=== PATIENT | female | born 1970 | race African-American/Black ===

== ENCOUNTER 2017-09-24 03:48 | Emergency (ER) | payer OTHER ==
[2017-09-24] MEDS ORDERED: ASPIRIN 81 MG TABLET, CHEWABLE PO ONE (04:42)
--- NOTE | 2017-09-24 04:46 | ER Document Report ---
ED General - General Chief Complaint: Chest Pain Stated Complaint: CHEST PAIN Time Seen by Provider: 09/24/17 04:33 Notes: Patient is a 46-year-old female that comes emergency department for chief complaint of chest pain, left shoulder pain, and pain to her left arm. She states that whenever she moves her left arm she feels sharp pain in her arm and also in her shoulder towards the back. She states that when she moved she felt a sharp pain in her chest that lasted a couple of seconds, no chest pain since, denies current chest pain. She states that the pain made her feel a little bit nauseated, she denies vomiting, shortness of breath. She denies injury. Past medical history of hypertension, medicated. Denies smoking, only other medical history reported is cardiac ablation, does not need antiarrhythmics since, no blood thinners. Positive family history of [place]. TRAVEL OUTSIDE OF THE [place] IN LAST 30 DAYS: No - Related Data Allergies/Adverse Reactions: No Known Allergies Allergy (Verified 06/20/13 10:18) Past Medical History - General Information source: Patient - Social History Smoking Status: Never Smoker Chew tobacco use (# tins/day): No Drug Abuse: None Lives with: Family Family History: CAD Patient has suicidal ideation: No Patient has homicidal ideation: No - Past Medical History Cardiac Medical History: Reports: Hx Hypertension - contr.w/ meds Denies: Hx Coronary Artery Disease, Hx Heart Attack Pulmonary Medical History: Reports: Hx Asthma - last 2 yr ago,no admits. Denies: Hx Bronchitis, Hx COPD, Hx Pneumonia Neurological Medical History: Denies: Hx Cerebrovascular Accident, Hx Seizures Renal/ Medical History: Denies: Hx Peritoneal Dialysis GI Medical History: Musculoskeletal Medical History: Denies Hx Arthritis Infectious Medical History: Past Surgical History: Denies: Hx Pacemaker - Immunizations Hx Diphtheria, Pertussis, Tetanus Vaccination: - unknown Review of Systems - Review of Systems Constitutional: No symptoms reported EENT: No symptoms reported Cardiovascular: See HPI Respiratory: No symptoms reported Gastrointestinal: No symptoms reported Genitourinary: No symptoms reported Female Genitourinary: No symptoms reported Musculoskeletal: See HPI Skin: No symptoms reported Hematologic/Lymphatic: No symptoms reported Neurological/Psychological: No symptoms reported Physical Exam - Vital signs Vitals: Temp Pulse Resp BP Pulse Ox 98.3 F 81 16 157/102 H 97 09/24/17 03:59 09/24/17 03:59 09/24/17 03:59 09/24/17 03:59 09/24/17 03:59 - Notes Notes: GENERAL: Alert, interacts well. No acute distress. HEAD: Normocephalic, atraumatic. EYES: Pupils equal, round, and reactive to light. Extraocular movements intact. ENT: Oral mucosa moist, tongue midline. NECK: Full range of motion. Supple. Trachea midline. LUNGS: Clear to auscultation bilaterally, no wheezes, rales, or rhonchi. No respiratory distress. HEART: Regular rate and rhythm. No murmur ABDOMEN: Soft, non-tender. Non-distended. Bowel sounds present in all 4 quadrants. EXTREMITIES: Patient holding her left arm close to her body, moves her left arm with a little bit of discomfort, still can perform full range of motion, normal strength, pulse, sensation. Mild tenderness over the posterior left shoulder area. Unremarkable neck exam. Normal upper extremity exam otherwise. BACK: no cervical, thoracic, lumbar midline tenderness. No saddle anesthesia, normal distal neurovascular exam. NEUROLOGICAL: Alert and oriented x3. Normal speech. [cranial nerves II through XII grossly intact]. PSYCH: Normal affect, normal mood. SKIN: Warm, dry, normal turgor. No rashes or lesions noted. Course - Re-evaluation Re-evalutation: Patient with pain on examination in her left posterior shoulder and paracervical area which is mild, pain with movement of the left arm. No current chest pain, chest pain nonspecific with only a few seconds of chest pain with movement which resolved. EKG showing sinus rhythm at a rate of 78, normal QTC and SD intervals, no T- wave inversions or ST segment changes in consecutive leads. Her heart score will be 2 unless troponin is elevated (hypertension, positive family history). 09/24/17 06:30 Initial troponin is negative. CBC, chemistry generally unremarkable. Chest x- ray unremarkable. On reevaluation patient remains unchanged, she has pain with movement of the left arm. Provided with pain medication. Discussed with patient. Will repeat troponin, if this is negative patient will be discharged with cardiology referral and treatment for her neck and arm pain with muscle relaxers and anti-inflammatories. Discussed return precautions. Patient states understanding and agreement. - Vital Signs Vital signs: Temp Pulse Resp BP Pulse Ox 98.3 F 81 15 122/91 H 97 09/24/17 03:59 09/24/17 03:59 09/24/17 06:02 09/24/17 06:02 09/24/17 06:02 - Laboratory Result Diagrams: 09/24/17 05:28 09/24/17 05:28 Laboratory results interpreted by me: 09/24/17 09/24/17 05:28 05:28 RDW 14.8 H Glucose 113 H Calcium 11.0 H Total Protein 9.2 H Discharge - Discharge Clinical Impression: Left arm pain Chest pain Qualifiers: Chest pain type: unspecified Qualified Code(s): R07.9 - Chest pain, unspecified Left shoulder pain Qualifiers: Chronicity: acute Qualified Code(s): M25.512 - Pain in left shoulder Disposition: HOME, SELF-CARE Additional Instructions: Your workup today did not show any concerning abnormality. Follow-up with the cardiology referral closely for additional evaluation and management of chest pain. Your chest x-ray does not show any concerning findings. There appears to be a muscular/skeletal component of your pain, I recommend that you take the muscle relaxer and anti-inflammatory as prescribed for the next several days, rest your arm, perform gentle range of motion. Follow-up with primary care. Return for any concerning symptoms including severe pain, difficulty breathing, numbness, fever, or any other concerning or worsening symptoms. Prescriptions: Metaxalone [Skelaxin 800 mg Tablet] 800 mg PO ASDIR PRN #20 tablet PRN Reason: Naproxen [Naprosyn 375 Mg Tablet] 375 mg PO BID #20 tablet Forms: Return to Work Referrals: TOLU SANDOVAL MD [ACTIVE STAFF] - 09/25/17
[2017-09-24 05:47] LABS: ABSOLUTE EOSINOPHILS # (AUTO) 0.3 10^3/uL (0.0-0.6); ABSOLUTE LYMPHOCYTES (AUTO) 1.6 10^3/uL (0.5-4.7); ABSOLUTE MONOCYTES (AUTO) 0.6 10^3/uL (0.1-1.4); BASOPHILS % (AUTO) 0.5 % (0-2); EOSINOPHILS % (AUTO) 4.2 % (0-6); HEMATOCRIT 43.1 % (36.0-47.0); HEMOGLOBIN 14.3 g/dL (12.0-15.5); LYMPHOCYTES % (AUTO) 25.1 % (13-45); MEAN CORPUSCULAR HEMOGLOBIN 28.1 pg (27.0-33.4); MEAN CORPUSCULAR HGB CONC 33.3 g/dL (32.0-36.0); MEAN CORPUSCULAR VOLUME 84 fl (80-97); MONOCYTES % (AUTO) 8.5 % (3-13); PLATELET COUNT 278 10^3/uL (150-450); RED BLOOD COUNT 5.11 10^6/uL (3.72-5.28); RED CELL DISTRIBUTION WIDTH 14.8 % (11.5-14.0); SEGMENTED NEUTROPHILS % (AUTO) 61.7 % (42-78); TOTAL CELLS COUNTED % (AUTO) 100 %; WHITE BLOOD COUNT 6.5 10^3/uL (4.0-10.5)
[2017-09-24 06:06] LABS: ALANINE AMINOTRANSFERASE 20 U/L (9-52); ALBUMIN 4.7 g/dL (3.5-5.0); ALKALINE PHOSPHATASE 83 U/L (38-126); ANION GAP 10 (5-19); ASPARTATE AMINO TRANSFERASE 26 U/L (14-36); BILIRUBIN,DIRECT 0.2 mg/dL (0.0-0.4); BILIRUBIN,TOTAL 1.1 mg/dL (0.2-1.3); BLOOD UREA NITROGEN 9 mg/dL (7-20); CARBON DIOXIDE 30 mmol/L (22-30); CHLORIDE 101 mmol/L (98-107); CREATINE KINASE 109 U/L (30-135); GLUCOSE 113 mg/dL (75-110); POTASSIUM 3.8 mmol/L (3.6-5.0); SODIUM 141.2 mmol/L (137-145); TOTAL PROTEIN 9.2 g/dL (6.3-8.2)
--- NOTE | 2017-09-24 06:12 | RADIOLOGY REPORT (SQ) ---
EXAM DESCRIPTION: XR CHEST 1 VIEW COMPLETED DATE/TME: 09/24/2017 04:43 CLINICAL HISTORY: 46 years, Female, chest pain COMPARISON: 09/07/2011 NUMBER OF VIEWS: One TECHNIQUE: AP view of the chest LIMITATIONS: None. FINDINGS: The lungs are clear. The heart is normal in size. There is no pneumothorax or pleural effusion. There is no acute fracture IMPRESSION: No acute cardiopulmonary abnormality 2010 [employer]- All Rights Reserved
[2017-09-24 06:18] LABS: CREATINE KINASE MB 0.49 ng/mL (<4.55)
[2017-09-24 06:19] LABS: TROPONIN I < 0.012 ng/mL
[2017-09-24] MEDS ORDERED: MORPHINE SULFATE 10 MG/ML INJ IV ONE (06:32)
[2017-09-24 08:52] VITALS: BP 107/78
--- NOTE | 2017-09-24 10:03 | EKG REPORT ---
SEVERITY:- NORMAL ECG - SINUS RHYTHM : Confirmed by: Sloan Peguero 24-Sep-2017 10:03:13
== END 2017-09-24 08:52 | disposition home or self-care (01) ==
LOC: ER 03:48
DX: R07.9 Chest pain, unspecified (principal); M25.512 Pain in left shoulder; M79.602 Pain in left arm; I10 Essential (primary) hypertension
CPT/HCPCS: 93005; 99285; 96374; 36415; 82553; 82550; 84703; 85025; 80053; 84484; 71045; 93010; J2270

== ENCOUNTER 2019-07-20 14:53 | Emergency (ER) | payer OTHER ==
--- NOTE | 2019-07-20 15:21 | ER Document Report ---
ED Medical Screen (RME) - General Chief Complaint: Chest Pain Stated Complaint: CHEST PAIN Time Seen by Provider: 07/20/19 15:00 Primary Care Provider: PILAR NJ FNP-C [Primary Care Provider] - Follow up as needed Mode of Arrival: Ambulatory Information source: Patient Notes: Patient is a 48-year-old female with history of SVT presenting to the emergency department with intermittent heart palpitations and chest pain. Patient reports symptoms have been intermittent over the last few days. She states she saw her primary care provider today who did an EKG which was normal. Heart sounds S1-S2 present, normal rate, normal rhythm no acute distress noted. EKG reviewed, shows a sinus rhythm, no ST segment elevations or depressions. I have greeted and performed a rapid initial assessment of this patient. A comprehensive ED assessment and evaluation of the patient, analysis of test results and completion of the medical decision making process will be conducted by additional ED providers. I have specifically instructed the patient or family members with the patient to immediately return to any nursing staff should anything change in the patient's condition or with their chief complaint. TRAVEL OUTSIDE OF THE [place] IN LAST 30 DAYS: No - Related Data Allergies/Adverse Reactions: No Known Allergies Allergy (Verified 06/20/13 10:18) Home Medications: hctz, advair, proair Past Medical History - Social History Chew tobacco use (# tins/day): No Frequency of alcohol use: Rare Drug Abuse: None - Past Medical History Cardiac Medical History: Reports: Hx Hypertension - contr.w/ meds Denies: Hx Coronary Artery Disease, Hx Heart Attack Pulmonary Medical History: Reports: Hx Asthma - last 2 yr ago,no admits. Denies: Hx Bronchitis, Hx COPD, Hx Pneumonia Neurological Medical History: Denies: Hx Cerebrovascular Accident, Hx Seizures Renal/ Medical History: Denies: Hx Peritoneal Dialysis GI Medical History: Musculoskeltal Medical History: Denies Hx Arthritis Infectious Medical History: Past Surgical History: Denies: Hx Pacemaker - Immunizations Hx Diphtheria, Pertussis, Tetanus Vaccination: - unknown Physical Exam - Vital signs Vitals: Temp Pulse Resp BP Pulse Ox 98.2 F 73 20 148/95 H 98 07/20/19 15:06 07/20/19 15:06 07/20/19 15:06 07/20/19 15:06 07/20/19 15:06 Course - Vital Signs Vital signs: Temp Pulse Resp BP Pulse Ox 98.2 F 73 20 148/95 H 98 07/20/19 15:08 07/20/19 15:06 07/20/19 15:06 07/20/19 15:06 07/20/19 15:06 Doctor's Discharge - Discharge Referrals: PILAR NJ FNP-C [Primary Care Provider] - Follow up as needed
--- NOTE | 2019-07-20 15:45 | RADIOLOGY REPORT (SQ) ---
EXAM DESCRIPTION: CHEST 2 VIEWS IMAGES COMPLETED DATE/TIME: 07/20/2019 3:35 pm REASON FOR STUDY: chest pain/palpitations COMPARISON: PA and lateral views of the chest from 09/07/2011. EXAM PARAMETERS: NUMBER OF VIEWS: Two views. TECHNIQUE: PA and lateral views of the chest were obtained. RADIATION DOSE: NA LIMITATIONS: None. FINDINGS: LUNGS AND PLEURA: No consolidation, pleural effusion or pneumothorax. MEDIASTINUM AND HILAR STRUCTURES: No mediastinal or hilar contour abnormality. HEART AND VASCULAR STRUCTURES: The cardiac silhouette and pulmonary vasculature are within normal kolb its. BONES: No acute findings. HARDWARE: None in the chest. OTHER: No other finding. IMPRESSION: No acute cardiopulmonary process. TECHNICAL DOCUMENTATION: JOB ID: [id number] 2010 [employer]- All Rights Reserved Reading location - IP/workstation name: [email or web address]
[2019-07-20 16:08] LABS: ABSOLUTE EOSINOPHILS # (AUTO) 0.2 10^3/uL (0.0-0.6); ABSOLUTE LYMPHOCYTES (AUTO) 1.8 10^3/uL (0.5-4.7); ABSOLUTE MONOCYTES (AUTO) 0.5 10^3/uL (0.1-1.4); ABSOLUTE NEUT (AUTO) 2.4 10^3/uL (1.7-8.2); BASOPHILS % (AUTO) 0.8 % (0-2); EOSINOPHILS % (AUTO) 5.1 % (0-6); HEMATOCRIT 43.5 % (36.0-47.0); HEMOGLOBIN 14.7 g/dL (12.0-15.5); LYMPHOCYTES % (AUTO) 36.5 % (13-45); MEAN CORPUSCULAR HEMOGLOBIN 28.9 pg (27.0-33.4); MEAN CORPUSCULAR HGB CONC 33.9 g/dL (32.0-36.0); MEAN CORPUSCULAR VOLUME 85 fl (80-97); MONOCYTES % (AUTO) 9.3 % (3-13); PLATELET COUNT 265 10^3/uL (150-450); RED CELL DISTRIBUTION WIDTH 14.3 % (11.5-14.0); SEGMENTED NEUTROPHILS % (AUTO) 48.3 % (42-78); TOTAL CELLS COUNTED % (AUTO) 100 %; WHITE BLOOD COUNT 4.9 10^3/uL (4.0-10.5)
[2019-07-20 16:29] LABS: ALBUMIN 4.6 g/dL (3.5-5.0); ALKALINE PHOSPHATASE 86 U/L (38-126); ANION GAP 8 (5-19); ASPARTATE AMINO TRANSFERASE 22 U/L (14-36); BILIRUBIN,TOTAL 0.7 mg/dL (0.2-1.3); BLOOD UREA NITROGEN 11 mg/dL (7-20); CALCIUM 9.6 mg/dL (8.4-10.2); CARBON DIOXIDE 29 mmol/L (22-30); CHLORIDE 100 mmol/L (98-107); GLUCOSE 100 mg/dL (75-110); POTASSIUM 3.7 mmol/L (3.6-5.0); TOTAL PROTEIN 8.5 g/dL (6.3-8.2)
--- NOTE | 2019-07-20 17:22 | ER Document Report ---
ED General - General Chief Complaint: Chest Pain Stated Complaint: CHEST PAIN Time Seen by Provider: 07/20/19 15:00 Primary Care Provider: PILAR NJ FNP-C [NURSE PRACTITIONER] - Follow up as needed Mode of Arrival: Ambulatory Notes: 48-year-old woman presents to the emergency department with a complaint of chest discomfort which has been ongoing for the past 2 days. She describes a funny tightness in her anterior chest and involving the left shoulder area. Pain began after doing some yard work earlier in the week last week. She has a history of rapid heartbeat and an ablation procedure 1 year ago. States that the symptoms occur while at rest, usually last for a few minutes only, she also notes a burning sensation in her anterior chest at times. She denies nausea, palpitations, diaphoresis or shortness of breath. She has a history of hypertension, does not smoke, notes her cholesterols have been normal in the past and no significant family history for CAD. TRAVEL OUTSIDE OF THE [place] IN LAST 30 DAYS: No - Related Data Allergies/Adverse Reactions: No Known Allergies Allergy (Verified 06/20/13 10:18) Home Medications: hctz, advair, proair Past Medical History - General Information source: Patient - Social History Smoking Status: Never Smoker Chew tobacco use (# tins/day): No Frequency of alcohol use: Rare Drug Abuse: None Family History: CAD Patient has homicidal ideation: No - Past Medical History Cardiac Medical History: Reports: Hx Hypertension - contr.w/ meds Denies: Hx Coronary Artery Disease, Hx Heart Attack Pulmonary Medical History: Reports: Hx Asthma - last 2 yr ago,no admits. Denies: Hx Bronchitis, Hx COPD, Hx Pneumonia Neurological Medical History: Denies: Hx Cerebrovascular Accident, Hx Seizures Renal/ Medical History: Denies: Hx Peritoneal Dialysis GI Medical History: Musculoskeletal Medical History: Denies Hx Arthritis Infectious Medical History: Past Surgical History: Reports: Hx Cardiac Surgery - ablation. Denies: Hx Pacemaker - Immunizations Hx Diphtheria, Pertussis, Tetanus Vaccination: - unknown Review of Systems - Review of Systems Notes: Constitutional: Negative for fever. HENT: Negative for sore throat. Eyes: Negative for visual changes. Cardiovascular: Negative for chest pain. Respiratory: Negative for shortness of breath. Gastrointestinal: Negative for abdominal pain, vomiting or diarrhea. Genitourinary: Negative for dysuria. Musculoskeletal: Negative for back pain. Skin: Negative for rash. Neurological: Negative for headaches, weakness or numbness. 10 point ROS negative except as marked above and in HPI. Physical Exam - Vital signs Vitals: Temp Pulse Resp BP Pulse Ox 98.2 F 73 20 148/95 H 98 07/20/19 15:06 07/20/19 15:06 07/20/19 15:06 07/20/19 15:06 07/20/19 15:06 - Notes Notes: PHYSICAL EXAMINATION: Physical Exam: General: Well-nourished well-developed 48-year-old woman in no acute distress HEENT: NC/AT, pupils equal round and reactive to light, MM moist,nares clear, oropharynx clear, airway patent Neck: supple, no adenopathy, no masses. Good range of motion Lungs: clear, no wheezing, no rales no rhonchi CVS: Regular rate and rhythm no murmur gallop or rub Abdomen: Soft, active, nontender, no masses, no hepatosplenomegaly Ext: No edema, clubbing or cyanosis. Neuro: Alert and responsive, moving all 4 extremities on command, cranial nerves intact, no focal findings Skin: Intact no open lesions, no rash PSYCH: Normal mood, normal affect. Course - Vital Signs Vital signs: Temp Pulse Resp BP Pulse Ox 98.2 F 73 15 117/87 H 99 07/20/19 15:08 07/20/19 15:06 07/20/19 19:00 07/20/19 19:00 07/20/19 19:00 - Laboratory Result Diagrams: 07/20/19 15:45 07/20/19 15:45 Laboratory results interpreted by me: 07/20/19 07/20/19 15:45 15:45 RDW 14.3 H Total Protein 8.5 H 07/20/19 19:16 I have reviewed laboratory data and used this information for the treatment decisions regarding the patient. Discharge - Discharge Clinical Impression: Chest pain Qualifiers: Chest pain type: unspecified Qualified Code(s): R07.9 - Chest pain, unspecified Hypertension Qualifiers: Hypertension type: unspecified Qualified Code(s): I10 - Essential (primary) hypertension Condition: Good Disposition: HOME, SELF-CARE Instructions: Chest Pain of Unclear Cause ([facility]) Additional Instructions: You are seen in the emergency department for nonspecific chest pain and elevated blood pressure. Please follow-up with chief of vital statistics tomorrow, call office for appointment. Please continue blood pressure medication and follow-up the blood pressure with your primary care doctor. HOME CARE INSTRUCTIONS & INFORMATION: Thank you for choosing us for your medical needs. We hope you're satisfied with the care you received. After you leave, you must properly care for your problem and, at the same time, observe its progress. Any condition can change. Some illnesses can change rapidly over hours or days. If your condition worsens, return to the Emergency Department or see your physician promptly. ABOUT YOUR X-RAYS AND EKG'S: If you had an EKG or X-rays taken, they have been read by the Emergency Physician. The X-rays and EKG's will also be read by a Radiologist or Construction Project Coordinator within 24 hours. If discrepancies are noted, you will be notified by telephone. Please be certain the ED has a correct telephone number & address where you can be reached. Also, realize that some fractures or abnormalities do not show up on initial X-rays. If your symptoms continue, see your physician. ABOUT YOUR LABORATORY TEST: If you had laboratory tests, the results have been reviewed by the Emergency Physician. Some test results (for example cultures) may not be available for several days. You will be contacted if any test result shows you need additional treatment. Please be certain the ED has a correct telephone number and address where you can be reached. ABOUT YOUR MEDICATIONS: You will receive instructions on how to take your medicine on the prescription label you receive. Additional information may be provided by the Pharmacy. If you have questions afterwards, call the ED for clarification or further instructions. Some prescribed medications may cause drowsiness. Do not perform tasks such as driving a car or operating machinery without consulting your Pharmacist. If you feel you need a refill of pain medication, your condition will need re-evaluation. Please do not call for a refill of any medication. ABOUT YOUR SIGNATURE: Signature of this document acknowledges to followin. Understanding that you received emergency treatment and that you may be released before al medical problems are known or treated. Please be certain the ED has a correct phone number & address where you can be reached. 2. Acknowledgement that you will arrange for follow-up care as recommended. 3. Authorization for the Emergency Physician to provide information to your follow-up Physician in order to maximize your care. AT ANY TIME, IF YOUR SYMPTOMS CHANGE SIGNIFICANTLY OR WORSEN OR YOU DEVELOP NEW SYMPTOMS, RETURN TO THE EMERGENCY DEPARTMENT IMMEDIATELY FOR RE-EVALUATION. OUR GOAL IS TO PROVIDE EXCELLENT MEDICAL CARE! WE HOPE THAT WE HAVE MET YOUR EXPECTATIONS DURING YOUR EMERGENCY DEPARTMENT VISIT AND THAT YOU FEEL YOU HAVE RECEIVED EXCELLENT CARE! Referrals: JAIRO SPEAR MD [ACTIVE PROVISIONAL STAFF] - Follow up as needed PILAR NJ FNP-C [NURSE PRACTITIONER] - Follow up as needed
[2019-07-20 17:28] LABS: APPEARANCE,URINE CLEAR; BILIRUBIN,URINE NEGATIVE (NEGATIVE); COLOR,URINE COLORLESS; GLUCOSE, URINE NEGATIVE (NEGATIVE); KETONES,URINE NEGATIVE (NEGATIVE); PROTEIN,URINE NEGATIVE (NEGATIVE); URINE SPECIFIC GRAVITY 1.003; UROBILINOGEN,URINE NEGATIVE mg/dL (<2.0)
[2019-07-20] MEDS ORDERED: KETOROLAC TROMETHAMINE INJ/PF 30 MG/1 ML SDV IV ONE (17:49)
[2019-07-20] MEDS ORDERED: CLONIDINE HCL 0.1 MG TABLET PO ONE (17:49)
[2019-07-20 19:08] VITALS: BP 117/87
--- NOTE | 2019-07-20 22:31 | EKG REPORT ---
SEVERITY:- BORDERLINE ECG - SINUS RHYTHM BORDERLINE T ABNORMALITIES, ANTERIOR LEADS : Confirmed by: Sloan Peguero 20-Jul-2019 22:30:40
== END 2019-07-20 19:27 | disposition home or self-care (01) ==
LOC: ER 14:53
DX: R07.9 Chest pain, unspecified (principal); I10 Essential (primary) hypertension
CPT/HCPCS: 93005; 99285; 96374; 36415; 85025; 80053; 81001; 84484; 71046; 93010; J1885

== ENCOUNTER 2019-08-21 21:26 | Emergency (ER) | payer OTHER ==
--- NOTE | 2019-08-21 22:04 | ER Document Report ---
ED Medical Screen (RME) - General Chief Complaint: Headache >24 hrs old Stated Complaint: HIGH BLOOD PRESSURE,LIGHTHEADED Time Seen by Provider: 08/21/19 22:03 Information source: Patient Notes: This 48-year-old female presents to the emergency room today with a headache which is been ongoing for approximately 3 days. She does not really have any significant history of a headache although she did have some type of bleeding in her head many years ago she went up staying overnight in the hospital and she had a cardiac ablation about 2 years ago. TRAVEL OUTSIDE OF THE [place] IN LAST 30 DAYS: No - Related Data Allergies/Adverse Reactions: No Known Allergies Allergy (Verified 06/20/13 10:18) Home Medications: flonase Past Medical History - Past Medical History Cardiac Medical History: Reports: Hx Hypertension - contr.w/ meds Denies: Hx Coronary Artery Disease, Hx Heart Attack Pulmonary Medical History: Reports: Hx Asthma - last 2 yr ago,no admits. Denies: Hx Bronchitis, Hx COPD, Hx Pneumonia Neurological Medical History: Denies: Hx Cerebrovascular Accident, Hx Seizures Renal/ Medical History: Denies: Hx Peritoneal Dialysis GI Medical History: Musculoskeltal Medical History: Denies Hx Arthritis Infectious Medical History: Past Surgical History: Reports: Hx Cardiac Surgery - ablation. Denies: Hx Pacemaker - Immunizations Hx Diphtheria, Pertussis, Tetanus Vaccination: - unknown Physical Exam - Vital signs Vitals: Temp Pulse Resp BP Pulse Ox 98.2 F 87 16 150/98 H 97 08/21/19 21:31 08/21/19 21:31 08/21/19 21:31 08/21/19 21:31 08/21/19 21:31 Course - Vital Signs Vital signs: Temp Pulse Resp BP Pulse Ox 98.2 F 87 16 150/98 H 97 08/21/19 21:57 08/21/19 21:31 08/21/19 21:31 08/21/19 21:31 08/21/19 21:31
[2019-08-21] MEDS ORDERED: METOCLOPRAMIDE HCL INJ/PF 10 MG/2 ML SDV IV ONE (22:38)
[2019-08-21] MEDS ORDERED: DIPHENHYDRAMINE HCL 50 MG/ML VIAL IV ONE (22:38)
[2019-08-21] MEDS ORDERED: KETOROLAC TROMETHAMINE INJ/PF 30 MG/1 ML SDV IV ONE (22:38)
[2019-08-21] MEDS ORDERED: NORMAL SALINE 1000 ML 1,000 ML IV ONE (22:38)
--- NOTE | 2019-08-21 22:41 | ER Document Report ---
ED General - General Chief Complaint: Headache >24 hrs old Stated Complaint: HIGH BLOOD PRESSURE,LIGHTHEADED Time Seen by Provider: 08/21/19 22:03 Notes: Patient is a 48-year-old -[place] female with a history of "heart problems" under the direction of her heater helper, history of hypertension on HCTZ and migraine headaches who presents to the emergency department with a chief complaint of headache for the past 5 days. She states the headache was gradual in onset. States it is pressure-like, primarily involving the frontal region of the forehead. States that she is tried Aleve without any improvement. She saw her heater helper today and noted to have some slightly elevated blood pressure that they attributed to anxiety and headache. They recommended she try Flonase for sinus headache. She states she tried this without any improvement. She states she is concerned that the headache continues and this does not feel like her normal migraines so she decided to come for evaluation. She denies any visual disturbances, hearing deficits, neck pain, dizziness, numbness, tingling, weakness, focal deficits. TRAVEL OUTSIDE OF THE [place] IN LAST 30 DAYS: No - Related Data Allergies/Adverse Reactions: No Known Allergies Allergy (Verified 06/20/13 10:18) Home Medications: flonase Past Medical History - General Information source: Patient - Social History Smoking Status: Never Smoker Family History: CAD Patient has homicidal ideation: No - Past Medical History Cardiac Medical History: Reports: Hx Hypertension - contr.w/ meds Denies: Hx Coronary Artery Disease, Hx Heart Attack Pulmonary Medical History: Reports: Hx Asthma - last 2 yr ago,no admits. Denies: Hx Bronchitis, Hx COPD, Hx Pneumonia Neurological Medical History: Denies: Hx Cerebrovascular Accident, Hx Seizures Renal/ Medical History: Denies: Hx Peritoneal Dialysis GI Medical History: Musculoskeletal Medical History: Denies Hx Arthritis Infectious Medical History: Past Surgical History: Reports: Hx Cardiac Surgery - ablation. Denies: Hx Pacemaker - Immunizations Hx Diphtheria, Pertussis, Tetanus Vaccination: - unknown Review of Systems - Review of Systems Neurological/Psychological: Headaches -: Yes All other systems reviewed and negative Physical Exam - Vital signs Vitals: Temp Pulse Resp BP Pulse Ox 98.2 F 87 16 150/98 H 97 08/21/19 21:31 08/21/19 21:31 08/21/19 21:31 08/21/19 21:31 08/21/19 21:31 - General General appearance: Appears well, Alert In distress: None - HEENT Head: Normocephalic, Atraumatic Eyes: Normal Conjunctiva: Normal Extraocular movements intact: Yes Eyelashes: Normal Pupils: PERRL Ears: Normal External canal: Normal Tympanic membrane: Normal Nasal: Normal Mouth/Lips: Normal Mucous membranes: Normal Pharynx: Normal Neck: Normal, Supple - Respiratory Respiratory status: No respiratory distress Chest status: Nontender Breath sounds: Normal Chest palpation: Normal - Cardiovascular Rhythm: Regular Heart sounds: Normal auscultation - Extremities General upper extremity: Normal inspection, Nontender, Normal color, Normal ROM, Normal temperature General lower extremity: Normal inspection, Nontender, Normal color, Normal ROM, Normal temperature, Normal weight bearing. 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 No: Pronator drift Sensory: Normal - Psychological Associated symptoms: Normal affect, Normal mood - Skin Skin Temperature: Warm Skin Moisture: Dry Skin Color: Normal Course - Re-evaluation Re-evalutation: 08/21/19 23:57 Reevaluation at this time: Patient is resting comfortably in the room. She states that her headache is nearly completely resolved, greatly improved. CT scan of the head was negative for any acute process per radiologist. Lab work largely unremarkable with a mildly elevated glucose. Patient will monitor for potential ongoing headaches and discuss with her primary doctor for referral to neurology. We will prescribe Fioricet in the interim. Counseled her regarding the importance of outpatient follow-up and advised that she return here or any ER immediately with any new, persistent or worsening symptoms. She verbalized understood and agreed. - Vital Signs Vital signs: Temp Pulse Resp BP Pulse Ox 98.2 F 87 16 150/98 H 97 08/21/19 21:57 08/21/19 21:31 08/21/19 21:31 08/21/19 21:31 08/21/19 21:31 - Laboratory Result Diagrams: 08/21/19 22:50 08/21/19 22:50 Laboratory results interpreted by me: 08/21/19 08/21/19 22:50 22:50 RDW 14.4 H Sodium 136.5 L Glucose 119 H Discharge - Discharge Clinical Impression: Cephalgia Qualifiers: Headache type: unspecified Headache chronicity pattern: unspecified pattern Intractability: not intractable Qualified Code(s): R51 - Headache Condition: Stable Disposition: HOME, SELF-CARE Instructions: High Blood Pressure ([facility]), Headache ([facility]) Additional Instructions: Follow-up with your regular doctor in 2 to 3 days for reevaluation. Return here or any ER immediately with any new, persistent or worsening symptoms. Prescriptions: Butalb/Acetaminophen/Caffeine [Fioricet (50-325-40 mg) Tablet] 1 tab PO Q6 #20 tab
--- NOTE | 2019-08-21 22:53 | RADIOLOGY REPORT (SQ) ---
EXAM DESCRIPTION: CT HEAD WITHOUT IV CONTRAST COMPLETED DATE/TME: 08/21/2019 22:04 CLINICAL HISTORY: pain COMPARISON: None available TECHNIQUE: Axial CT of the head obtained from the skull apex to the skull base without contrast. FINDINGS: No acute intracranial hemorrhage identified. No mass, mass effect, shift of the midline, abnormal extra-axial fluid collection or CT evidence of acute ischemic change identified. The ventricular system is unremarkable. No acute abnormalities of the supratentorial white matter, basal ganglia, cerebellum, or brainstem. The visualized paranasal sinuses and the mastoids are relatively well aerated. No skull fracture identified. Visualized orbits and globes are unremarkable. IMPRESSION: 1. No acute intracranial abnormality identified. This exam was performed according to our departmental dose-optimization program, which includes automated exposure control, adjustment of the mA and/or kV according to patient size and/or use of iterative reconstruction technique.
[2019-08-21 23:14] LABS: ABSOLUTE EOSINOPHILS # (AUTO) 0.2 10^3/uL (0.0-0.6); ABSOLUTE LYMPHOCYTES (AUTO) 1.9 10^3/uL (0.5-4.7); ABSOLUTE MONOCYTES (AUTO) 0.6 10^3/uL (0.1-1.4); ABSOLUTE NEUT (AUTO) 2.8 10^3/uL (1.7-8.2); BASOPHILS % (AUTO) 0.6 % (0-2); EOSINOPHILS % (AUTO) 3.7 % (0-6); HEMATOCRIT 41.7 % (36.0-47.0); HEMOGLOBIN 13.5 g/dL (12.0-15.5); LYMPHOCYTES % (AUTO) 34.6 % (13-45); MEAN CORPUSCULAR HEMOGLOBIN 27.8 pg (27.0-33.4); MEAN CORPUSCULAR HGB CONC 32.3 g/dL (32.0-36.0); MEAN CORPUSCULAR VOLUME 86 fl (80-97); MONOCYTES % (AUTO) 10.3 % (3-13); PLATELET COUNT 259 10^3/uL (150-450); RED BLOOD COUNT 4.84 10^6/uL (3.72-5.28); RED CELL DISTRIBUTION WIDTH 14.4 % (11.5-14.0); SEGMENTED NEUTROPHILS % (AUTO) 50.8 % (42-78); TOTAL CELLS COUNTED % (AUTO) 100 %; WHITE BLOOD COUNT 5.5 10^3/uL (4.0-10.5)
[2019-08-21 23:22] LABS: ALBUMIN 4.2 g/dL (3.5-5.0); ALKALINE PHOSPHATASE 68 U/L (38-126); ANION GAP 7 (5-19); ASPARTATE AMINO TRANSFERASE 18 U/L (14-36); BILIRUBIN,TOTAL 0.9 mg/dL (0.2-1.3); BLOOD UREA NITROGEN 9 mg/dL (7-20); CALCIUM 9.7 mg/dL (8.4-10.2); CARBON DIOXIDE 29 mmol/L (22-30); CHLORIDE 101 mmol/L (98-107); GLUCOSE 119 mg/dL (75-110); POTASSIUM 3.6 mmol/L (3.6-5.0); TOTAL PROTEIN 7.8 g/dL (6.3-8.2)
[2019-08-21 23:31] LABS: APPEARANCE,URINE CLEAR; BILIRUBIN,URINE NEGATIVE (NEGATIVE); COLOR,URINE YELLOW; GLUCOSE, URINE NEGATIVE (NEGATIVE); KETONES,URINE NEGATIVE (NEGATIVE); LEUKOCYTE ESTERASE,URINE NEGATIVE (NEGATIVE); NITRITE,URINE NEGATIVE (NEGATIVE); PROTEIN,URINE NEGATIVE (NEGATIVE); URINE SPECIFIC GRAVITY 1.005; UROBILINOGEN,URINE NEGATIVE mg/dL (<2.0)
[2019-08-22 00:52] VITALS: BP 113/83
== END 2019-08-22 00:51 | disposition home or self-care (01) ==
LOC: ER 21:26
DX: R51 Headache (principal); I10 Essential (primary) hypertension; J45.909 Unspecified asthma, uncomplicated; Z79.899 Other long term (current) drug therapy; Z86.69 Personal history of other diseases of the nervous system and sense organs
CPT/HCPCS: 99284; 96361; 96374; 96375; 36415; 85025; 80053; 81001; 70450; J1200; J1885; J2765; J7030

== ENCOUNTER 2019-08-23 05:19 | Emergency (ER) | payer OTHER ==
--- NOTE | 2019-08-23 06:32 | ER Document Report ---
ED General - General Chief Complaint: Arm Pain Stated Complaint: REPORTS HIGH BLOOD PRESSURE Time Seen by Provider: 08/23/19 06:17 Primary Care Provider: PILAR NJ FNP-C [Primary Care Provider] - Follow up as needed Notes: HPI: Patient is a 48-year-old female who presents today stating around 5 AM she was getting up from the couch when she fell asleep to go onto the bed and had acute left arm pain when standing from a seated position. She states it was when she was pushing up from the bed. She denies any radiation of the pain to the chest or down the arm. She states 1 out of 10 mild frontal headache without double or blurry vision. No nausea, vomiting, fevers, neck pain, or cough. No shortness of breath or leg swelling. No recent trips or travel. ROS: See HPI All other review of systems reviewed and otherwise negative Reviewed vital signs and nursing note as charted by RN. PHYSICAL EXAM: CONSTITUTIONAL: Alert and oriented and responds appropriately to questions. Well-appearing; well-nourished HEAD: Normocephalic; atraumatic EYES: PERRL; full extraocular range of motion without nystagmus ENT: Normal nose; no rhinorrhea; moist mucous membranes; pharynx without lesions noted NECK: Supple without meningismus; non-tender; no cervical lymphadenopathy, no masses CARD: Regular rate and rhythm; no murmurs; symmetric distal pulses RESP: Normal chest excursion without splinting or tachypnea; breath sounds clear and equal bilaterally; no wheezes, no rhonchi, no rales ABD/GI: Normal bowel sounds; non-distended; soft, non-tender; no palpable organomegaly or masses BACK: The back appears normal and is non-tender to palpation EXT: Normal ROM in all joints; tender to palpation with any obvious swelling or bruising to the left mid humerus. Strong distal pulses to all 4 extremities with excellent strength SKIN: No acute lesions noted NEURO: CN 2-12 intact; 5/5 bilateral upper and lower extremity strength with sensation intact to light touch PSYCH: The patient's mood and manner are appropriate. Grooming and personal hygiene are appropriate. TRAVEL OUTSIDE OF THE [place] IN LAST 30 DAYS: No - Related Data Allergies/Adverse Reactions: No Known Allergies Allergy (Verified 08/23/19 08:44) Home Medications: advair, albuterol, HCTZ, fiorecet, certirizine, flonase, Past Medical History - Social History Smoking Status: Never Smoker Family History: CAD Patient has homicidal ideation: No - Past Medical History Cardiac Medical History: Reports: Hx Hypertension - contr.w/ meds Denies: Hx Coronary Artery Disease, Hx Heart Attack Pulmonary Medical History: Reports: Hx Asthma - last 2 yr ago,no admits. Denies: Hx Bronchitis, Hx COPD, Hx Pneumonia Neurological Medical History: Denies: Hx Cerebrovascular Accident, Hx Seizures Renal/ Medical History: Denies: Hx Peritoneal Dialysis GI Medical History: Musculoskeletal Medical History: Denies Hx Arthritis Infectious Medical History: Past Surgical History: Reports: Hx Cardiac Surgery - ablation. Denies: Hx Pacemaker - Immunizations Hx Diphtheria, Pertussis, Tetanus Vaccination: - unknown Physical Exam - Vital signs Vitals: Temp 97.2 F 08/23/19 05:30 Course - Re-evaluation Re-evalutation: 08/23/19 06:32 Given the above history and physical examination with an atypical presentation in this 48-year-old female with high blood pressure, on hydrochlorothiazide, with no complaints of anterior chest pain, female in gender, 1 out of 10 headache with no fever, vomiting, double or blurry vision, temporal erythema or tenderness, I will check the patient for atypical ACS. I do believe PE and dissection to be unlikely. I do believe an acute intracranial etiology or infection to be unlikely. 08/23/19 06:33 Reviewing the patient's chart more thoroughly it appears that the patient was seen here for chest pain around a month ago. She does have a manager lighting. She was actually seen here yesterday for a headache. She did see her manager lighting yesterday. She did CT scan of the head that was unremarkable. She has a history of migraines and was started on Fioricet. She states her headache is much improved compared to yesterday. 08/23/19 06:58 EKG shows heart of 63, normal sinus rhythm, normal axis, no ST elevation or depression. Flattening T waves in aVL 08/23/19 10:33 Second troponin as recorded. Patient is currently pain-free. No change in exam. Patient will be discharged home with strict return precautions and follow-up with the primary care physician and manager lighting. - Vital Signs Vital signs: Temp Pulse Resp BP Pulse Ox 97.2 F 73 15 129/89 H 100 08/23/19 05:38 08/23/19 05:38 08/23/19 08:31 08/23/19 08:31 08/23/19 08:31 - Laboratory Result Diagrams: 08/23/19 06:44 08/23/19 06:44 Laboratory results interpreted by me: 08/23/19 06:44 RDW 14.2 H Discharge - Discharge Clinical Impression: Left upper arm pain Condition: Good Disposition: HOME, SELF-CARE Additional Instructions: Come back immediately for any increased pain, change in location or quality of pain, fevers, shortness of breath, leg swelling, or any other acute problems. Please continue to take your medications as prescribed and follow-up with the manager lighting and primary care physician. Referrals: PILAR NJ FNP-C [Primary Care Provider] - Follow up as needed
[2019-08-23 07:06] LABS: ABSOLUTE EOSINOPHILS # (AUTO) 0.1 10^3/uL (0.0-0.6); ABSOLUTE LYMPHOCYTES (AUTO) 1.5 10^3/uL (0.5-4.7); ABSOLUTE MONOCYTES (AUTO) 0.5 10^3/uL (0.1-1.4); ABSOLUTE NEUT (AUTO) 2.1 10^3/uL (1.7-8.2); BASOPHILS % (AUTO) 0.6 % (0-2); EOSINOPHILS % (AUTO) 3.3 % (0-6); HEMATOCRIT 40.1 % (36.0-47.0); HEMOGLOBIN 13.1 g/dL (12.0-15.5); LYMPHOCYTES % (AUTO) 34.6 % (13-45); MEAN CORPUSCULAR HEMOGLOBIN 28.1 pg (27.0-33.4); MEAN CORPUSCULAR HGB CONC 32.8 g/dL (32.0-36.0); MEAN CORPUSCULAR VOLUME 86 fl (80-97); MONOCYTES % (AUTO) 10.9 % (3-13); PLATELET COUNT 245 10^3/uL (150-450); RED BLOOD COUNT 4.68 10^6/uL (3.72-5.28); RED CELL DISTRIBUTION WIDTH 14.2 % (11.5-14.0); SEGMENTED NEUTROPHILS % (AUTO) 50.6 % (42-78); TOTAL CELLS COUNTED % (AUTO) 100 %; WHITE BLOOD COUNT 4.2 10^3/uL (4.0-10.5)
--- NOTE | 2019-08-23 07:10 | RADIOLOGY REPORT (SQ) ---
CLINICAL HISTORY: 11; cp COMPARISON: 09/24/2017. TECHNIQUE: XR CHEST 1 VIEW 08/23/2019 6:27 AM CDT FINDINGS: Cardiac silhouette is normal in size. Lungs are clear without consolidation, atelectasis, mass or edema. There is no pleural effusion. There is no pneumothorax. There are no acute osseous findings. IMPRESSION: Clear lungs.
[2019-08-23 07:14] LABS: ANION GAP 7 (5-19); BLOOD UREA NITROGEN 8 mg/dL (7-20); CALCIUM 9.3 mg/dL (8.4-10.2); CARBON DIOXIDE 28 mmol/L (22-30); CHLORIDE 103 mmol/L (98-107); GLUCOSE 99 mg/dL (75-110); POTASSIUM 3.6 mmol/L (3.6-5.0)
[2019-08-23 11:23] VITALS: BP 153/93
--- NOTE | 2019-08-23 22:41 | EKG REPORT ---
SEVERITY:- BORDERLINE ECG - SINUS RHYTHM BORDERLINE T WAVE ABNORMALITIES : Confirmed by: Annie Schneider MD 23-Aug-2019 22:40:59
--- NOTE | 2019-08-23 22:42 | EKG REPORT ---
SEVERITY:- NORMAL ECG - SINUS RHYTHM : Confirmed by: Annie Schneider MD 23-Aug-2019 22:41:05
== END 2019-08-23 11:10 | disposition home or self-care (01) ==
LOC: ER 05:19
DX: M79.602 Pain in left arm (principal); I10 Essential (primary) hypertension; R51 Headache; Z79.899 Other long term (current) drug therapy; J45.909 Unspecified asthma, uncomplicated
CPT/HCPCS: 36415; 71045; 80048; 84484; 85025; 93005; 93010; 99284

== ENCOUNTER 2019-09-08 09:34 | Emergency (ER) | payer OTHER ==
[2019-09-08 11:22] VITALS: BP 133/86
[2019-09-08] MEDS ORDERED: BUTALB/ACETAMINOPHEN/CAFFEINE 1 TAB EACH PO ONE (12:30)
--- NOTE | 2019-09-08 15:01 | RADIOLOGY REPORT (SQ) ---
EXAM DESCRIPTION: CTA CHEST IMAGES COMPLETED DATE/TIME: 09/08/2019 2:43 pm REASON FOR STUDY: cp/sob COMPARISON: None. TECHNIQUE: CT scan of the chest performed using helical scanning technique with dynamic intravenous contrast injection. Images reviewed with lung, soft tissue and bone windows. Reconstructed coronal and sagittal MPR images reviewed. Additional 3 dimensional post-processing performed to develop Maximal Intensity Projection images (NV P). All images stored on PACS. All CT scanners at this facility use dose modulation, iterative reconstruction, and/or weight based d osing when appropriate to reduce radiation dose to as low as reasonably achievable (ALARA). [facility]: Dose Right [facility]: CareDose [facility]: Dose Right [facility]: Teradose 4D [facility]: [employer] CONTRAST TYPE AND DOSE: contrast/concentration: Isovue 350.00 mmol/ml; Total Contrast Delivered: 49. 0 ml; Total Saline Delivered: 47.4 ml Contrast bolus adequate for pulmonary arteries and aorta. RENAL FUNCTION: GFR > 60. RADIATION DOSE: CT Rad equipment meets quality standard of care and radiation dose reduction techniq ues were employed. CTDIvol: 9.9 - 14.3 mGy. DLP: 530 mGy-cm. . LIMITATIONS: None. FINDINGS: LUNGS AND PLEURA: No masses, infiltrates, or pneumothorax. No pleural effusions or pleura l calcifications. AORTA AND GREAT VESSELS: Anatomic variant bovine arch. No aneurysm. HEART: No pericardial effusion. No significant coronary artery calcifications. PULMONARY ARTERIES: No emboli visualized in the main pulmonary arteries or the segmental branches. HILAR AND MEDIASTINAL STRUCTURES: No identified masses or abnormal nodes. HARDWARE: None in the chest. UPPER ABDOMEN: No significant findings. Limited exam. THYROID AND OTHER SOFT TISSUES: No masses. No adenopathy. BONES: No acute or significant finding. 3D MIPS: Confirm above findings. OTHER: No other significant finding. IMPRESSION: NORMAL CTA OF THE CHEST. NO PULMONARY EMBOLI. COMMENT: Quality ID # [id number]: Final reports with documentation of one or more dose reduction techniques (e.g., Automated exposure control, adjustment of the mA and/or kV according to patient size, use of iterative reconstruction technique) TECHNICAL DOCUMENTATION: JOB ID: [id number] 2010 [employer].- All Rights Reserved Reading location - IP/workstation name: [email or web address]
--- NOTE | 2019-09-08 15:40 | ER Document Report ---
ED General - General Chief Complaint: Headache Stated Complaint: HEADACHE Time Seen by Provider: 09/08/19 11:24 Primary Care Provider: PILAR NJ FNP-C [Primary Care Provider] - Follow up as needed Mode of Arrival: Ambulatory Information source: Patient TRAVEL OUTSIDE OF THE [place] IN LAST 30 DAYS: No - HPI Notes: Patient presents with several complaints. She complains of a headache. This headache starts on the left anabaptist and radiates across her forehead. She states this headache occurred today. It is been constant. Nothing makes it better or worse. It is moderate in intensity. She states that prior to today she has had this headache many times. She has seen her primary care doctor for it and has had a head CT for this pain. The head CT was unremarkable. She has been placed on sinus medications with no relief of her symptoms. She states she does not believe that she is under any stress but she may be because her mom is in the hospital. She denies any trauma. She is also had some chest pain and left arm pain that she has had in the past with work-ups that have been unremarkable that included labs and EKGs. - Related Data Allergies/Adverse Reactions: No Known Allergies Allergy (Verified 09/08/19 10:09) Past Medical History - General Information source: Patient - Social History Smoking Status: Never Smoker Frequency of alcohol use: Occasional Drug Abuse: None Family History: CAD Patient has homicidal ideation: No - Past Medical History Cardiac Medical History: Reports: Hx Hypertension - contr.w/ meds Denies: Hx Coronary Artery Disease, Hx Heart Attack Pulmonary Medical History: Reports: Hx Asthma - last 2 yr ago,no admits. Denies: Hx Bronchitis, Hx COPD, Hx Pneumonia Neurological Medical History: Reports: Hx Migraine. Denies: Hx Cerebrovascular Accident, Hx Seizures Renal/ Medical History: Denies: Hx Peritoneal Dialysis GI Medical History: Musculoskeletal Medical History: Denies Hx Arthritis Infectious Medical History: Past Surgical History: Reports: Hx Cardiac Surgery - ablation for svt, Hx Gynecologic Surgery - ablation. Denies: Hx Pacemaker - Immunizations Hx Diphtheria, Pertussis, Tetanus Vaccination: - unknown Review of Systems - Review of Systems Constitutional: denies: Chills, Fever Cardiovascular: Chest pain. denies: Palpitations Respiratory: denies: Cough, Short of breath -: Yes All other systems reviewed and negative Physical Exam - Vital signs Vitals: Temp Pulse Resp BP Pulse Ox 98.2 F 81 18 133/86 H 97 09/08/19 09:50 09/08/19 09:50 09/08/19 09:50 09/08/19 09:50 09/08/19 09:50 Interpretation: Hypertensive - Mild - General General appearance: Appears well, Alert - HEENT Head: Normocephalic, Atraumatic Eyes: Normal Pupils: PERRL - Respiratory Respiratory status: No respiratory distress Chest status: Nontender Breath sounds: Normal Chest palpation: Normal - Cardiovascular Rhythm: Regular Heart sounds: Normal auscultation Murmur: No - Abdominal Inspection: Normal Distension: No distension Bowel sounds: Normal Tenderness: Nontender Organomegaly: No organomegaly - Back Back: Normal, Nontender - Extremities General upper extremity: Normal inspection, Nontender, Normal color, Normal ROM, Normal temperature General lower extremity: Normal inspection, Nontender, Normal color, Normal ROM, Normal temperature, Normal weight bearing. No: Antonia's sign - Neurological Neuro grossly intact: Yes Cognition: Normal Orientation: AAOx4 Der[place] Coma Scale Eye Opening: Spontaneous [place] Coma Scale Verbal: Oriented Derrek Coma Scale Motor: Obeys Commands [place] Coma Scale Total: 15 Speech: Normal Cranial nerves: Normal Cerebellar coordination: Normal. 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 No: Pronator drift Sensory: Normal - Psychological Associated symptoms: Normal affect, Normal mood - Skin Skin Temperature: Warm Skin Moisture: Dry Skin Color: Normal Course - Re-evaluation Re-evalutation: 09/08/19 15:38 Patient presents with complaints that she has been seen for several times in the past. She has had multiple negative imaging and laboratory test. She has not yet had a CTA so this was performed. This was also normal. There is no evidence the patient is having pain due to cardiac pathology or pulmonary pathology. She may possibly be having some radicular pain and is scheduled for a neurology visit next week. I can find no evidence of temporal arteritis. No evidence of any type of intracranial pathology. Her neurological exam is normal. Her vitals are essentially normal as well. Patient did get relief here with Fioricet. I am going to discharge the patient to follow-up with neurology as I think that is the best possibility at this time. - Vital Signs Vital signs: Temp Pulse Resp BP Pulse Ox 98.2 F 81 18 133/86 H 97 09/08/19 09:50 09/08/19 09:50 09/08/19 09:50 09/08/19 09:50 09/08/19 09:50 - Diagnostic Test Radiology reviewed: Image reviewed, Reports reviewed Discharge - Discharge Clinical Impression: Headache Qualifiers: Headache type: unspecified Headache chronicity pattern: acute headache Intractability: intractable Qualified Code(s): R51 - Headache Condition: Stable Disposition: HOME, SELF-CARE Instructions: Headache ([facility]) Additional Instructions: Please follow-up with neurology as scheduled Referrals: PILAR JN FNP-C [Primary Care Provider] - Follow up as needed
== END 2019-09-08 15:49 | disposition home or self-care (01) ==
LOC: ER 09:34
DX: R51 Headache (principal); I10 Essential (primary) hypertension
CPT/HCPCS: 99284; 71275; J3490

== ENCOUNTER 2019-11-24 14:52 | Emergency (ER) | payer OTHER ==
--- NOTE | 2019-11-24 15:32 | ER Document Report ---
ED Medical Screen (RME) - General Chief Complaint: Chest Pain Stated Complaint: CHEST PAIN Time Seen by Provider: 11/24/19 15:21 Primary Care Provider: PILAR NJ FNP-C [Primary Care Provider] - Follow up as needed TRAVEL OUTSIDE OF THE [place] IN LAST 30 DAYS: No - HPI Notes: 11/24/19 15:30 48-year-old female presents the emergency room for complaints of substernal chest pain that started around 1:00 today, last for about an hour and since that time has been occurring intermittently. Reports that pain does radiate down her left upper arm her right upper arm, no radiation to her back jaw. Patient also reports that she started with a headache that has since resolved. Patient denies smoking, reports mother and father both had heart attacks and mother had a CVA. Patient reports that she has had history with chest pains in the past, she followed with a local hydrology technician but does not anymore. Patient is not on any anticoagulant therapy. She did have a partial hysterectomy. Patient is not having any active chest pain at this time. Denies any shortness of breath, nausea vomiting or diarrhea. Denies any fevers or chills. I have greeted and performed a rapid initial assessment of this patient. A comprehensive ED assessment and evaluation of the patient, analysis of test results and completion of the medical decision making process will be conducted by additional ED providers. PHYSICAL EXAMINATION: GENERAL: Well-appearing, well-nourished and in no acute distress. HEAD: Atraumatic, normocephalic. EYES: Pupils equal round extraocular movements intact, conjunctiva are normal. NECK: Normal range of motion CV: s1, s2 regular LUNGS: No respiratory distress Musculoskeletal: Normal range of motion NEUROLOGICAL: Normal speech, normal gait. SKIN: Warm, Dry, normal turgor, no rashes or lesions noted. - Related Data Allergies/Adverse Reactions: No Known Allergies Allergy (Verified 11/24/19 15:20) Home Medications: hydrochlorathizide. proair. albuterol. flonase. allergy medication Past Medical History - Social History Chew tobacco use (# tins/day): No Frequency of alcohol use: None Drug Abuse: None - Past Medical History Cardiac Medical History: Reports: Hx Hypertension - contr.w/ meds Denies: Hx Coronary Artery Disease, Hx Heart Attack Pulmonary Medical History: Reports: Hx Asthma - last 2 yr ago,no admits. Denies: Hx Bronchitis, Hx COPD, Hx Pneumonia Neurological Medical History: Reports: Hx Migraine. Denies: Hx Cerebrovascular Accident, Hx Seizures Renal/ Medical History: Denies: Hx Peritoneal Dialysis GI Medical History: Musculoskeltal Medical History: Denies Hx Arthritis Infectious Medical History: Past Surgical History: Reports: Hx Cardiac Surgery - ablation for svt, Hx Gynecologic Surgery - ablation. Denies: Hx Pacemaker - Immunizations Hx Diphtheria, Pertussis, Tetanus Vaccination: - unknown Physical Exam - Vital signs Vitals: Temp Pulse Resp BP Pulse Ox 98.9 F 83 18 126/95 H 97 11/24/19 15:11 11/24/19 15:11 11/24/19 15:11 11/24/19 15:11 11/24/19 15:11 Course - Vital Signs Vital signs: Temp Pulse Resp BP Pulse Ox 98.9 F 83 18 126/95 H 97 11/24/19 15:11 11/24/19 15:11 11/24/19 15:11 11/24/19 15:11 11/24/19 15:11 Doctor's Discharge - Discharge Referrals: PILAR NJ FNP-C [Primary Care Provider] - Follow up as needed
[2019-11-24 15:54] LABS: ABSOLUTE EOSINOPHILS # (AUTO) 0.2 10^3/uL (0.0-0.6); ABSOLUTE LYMPHOCYTES (AUTO) 1.7 10^3/uL (0.5-4.7); ABSOLUTE MONOCYTES (AUTO) 0.6 10^3/uL (0.1-1.4); ABSOLUTE NEUT (AUTO) 3.1 10^3/uL (1.7-8.2); BASOPHILS % (AUTO) 0.6 % (0-2); EOSINOPHILS % (AUTO) 4.3 % (0-6); HEMATOCRIT 40.3 % (36.0-47.0); HEMOGLOBIN 13.5 g/dL (12.0-15.5); MEAN CORPUSCULAR HEMOGLOBIN 28.8 pg (27.0-33.4); MEAN CORPUSCULAR HGB CONC 33.6 g/dL (32.0-36.0); MEAN CORPUSCULAR VOLUME 86 fl (80-97); MONOCYTES % (AUTO) 11.1 % (3-13); PLATELET COUNT 271 10^3/uL (150-450); RED CELL DISTRIBUTION WIDTH 15.4 % (11.5-14.0); TOTAL CELLS COUNTED % (AUTO) 100 %; WHITE BLOOD COUNT 5.8 10^3/uL (4.0-10.5)
[2019-11-24 16:18] LABS: ANION GAP 11 (5-19); BLOOD UREA NITROGEN 11 mg/dL (7-20); CALCIUM 10.1 mg/dL (8.4-10.2); CARBON DIOXIDE 30 mmol/L (22-30); CHLORIDE 97 mmol/L (98-107); GLUCOSE 99 mg/dL (75-110); POTASSIUM 3.6 mmol/L (3.6-5.0)
[2019-11-24 16:19] LABS: ALBUMIN 4.6 g/dL (3.5-5.0); ALKALINE PHOSPHATASE 86 U/L (38-126); ASPARTATE AMINO TRANSFERASE 28 U/L (14-36); BILIRUBIN,DIRECT 0.3 mg/dL (0.0-0.4); BILIRUBIN,TOTAL 1.1 mg/dL (0.2-1.3); CREATINE KINASE 69 U/L (30-135); TOTAL PROTEIN 8.7 g/dL (6.3-8.2)
[2019-11-24 16:21] LABS: CREATINE KINASE MB 0.51 ng/mL (<4.55)
[2019-11-24 16:23] LABS: TROPONIN I < 0.012 ng/mL
--- NOTE | 2019-11-24 17:09 | RADIOLOGY REPORT (SQ) ---
EXAM DESCRIPTION: CHEST SINGLE VIEW IMAGES COMPLETED DATE/TIME: 11/24/2019 3:28 pm REASON FOR STUDY: chest pain COMPARISON: 08/23/2019 EXAM PARAMETERS: NUMBER OF VIEWS: One view. TECHNIQUE: Single frontal radiographic view of the chest acquired. RADIATION DOSE: NA LIMITATIONS: None. FINDINGS: LUNGS AND PLEURA: No opacities, masses or pneumothorax. No pleural effusion. MEDIASTINUM AND HILAR STRUCTURES: No masses. Contour normal. HEART AND VASCULAR STRUCTURES: Heart normal in size. Normal vasculature. BONES: No acute findings. HARDWARE: None in the chest. OTHER: No other significant finding. IMPRESSION: NO ACUTE RADIOGRAPHIC FINDING IN THE CHEST. TECHNICAL DOCUMENTATION: JOB ID: [id number] 2010 [email or web address]- All Rights Reserved Reading location - IP/workstation name: [email or web address]
--- NOTE | 2019-11-24 21:41 | ER Document Report ---
ED General - General Chief Complaint: Chest Pain Stated Complaint: CHEST PAIN Time Seen by Provider: 11/24/19 15:21 Primary Care Provider: PILAR NJ FNP-C [Primary Care Provider] - Follow up as needed TRAVEL OUTSIDE OF THE [place] IN LAST 30 DAYS: No - HPI Notes: Patient is a 48-year-old female who presents to the emergency department for evaluation of substernal chest pain. It started this morning while she was sitting on her couch. It intermittently radiates into bilateral shoulders. She states she has burning across her chest, a pressure type sensation, and an ac lexy in her shoulders. It lasts for a few minutes at a time. She states she has had this pain intermittently over the last 6 months. She states that she rubs her shoulders when she gets this pain, but she just does this "so I feel like I am doing something." She states it really does not seem to change it. Nothing makes it better or worse. She denies any associated shortness of breath, nausea, diaphoresis, near syncope. She has been seen by cardiology, actually was released by them, stated that there was "nothing else to do." Patient also asks me if she has urinary tract infection. I asked her if she has any urinary symptoms, including dysuria, hematuria, urinary frequency. She den ies this, but states that she frequently has UTIs despite not having any of the symptoms. She asks that this be checked as well. - Related Data Allergies/Adverse Reactions: No Known Allergies Allergy (Verified 11/24/19 15:20) Home Medications: hydrochlorathizide. proair. albuterol. flonase. allergy medication Past Medical History - General Information source: Patient - Social History Smoking Status: Never Smoker Chew tobacco use (# tins/day): No Frequency of alcohol use: None Drug Abuse: None Family History: CAD Patient has homicidal ideation: No - Past Medical History Cardiac Medical History: Reports: Hx Hypertension - contr.w/ meds Denies: Hx Coronary Artery Disease, Hx Heart Attack Pulmonary Medical History: Reports: Hx Asthma - last 2 yr ago,no admits. Denies: Hx Bronchitis, Hx COPD, Hx Pneumonia Neurological Medical History: Reports: Hx Migraine. Denies: Hx Cerebrovascular Accident, Hx Seizures Renal/ Medical History: Denies: Hx Peritoneal Dialysis GI Medical History: Musculoskeletal Medical History: Denies Hx Arthritis Infectious Medical History: Past Surgical History: Reports: Hx Cardiac Surgery - ablation for svt, Hx Gynecologic Surgery - ablation. Denies: Hx Pacemaker - Immunizations Hx Diphtheria, Pertussis, Tetanus Vaccination: - unknown Review of Systems - Review of Systems Constitutional: No symptoms reported EENT: No symptoms reported Cardiovascular: See HPI Respiratory: No symptoms reported Gastrointestinal: No symptoms reported Genitourinary: No symptoms reported Musculoskeletal: See HPI Skin: No symptoms reported Hematologic/Lymphatic: Anemia Neurological/Psychological: No symptoms reported Physical Exam - Vital signs Vitals: Temp Pulse Resp BP Pulse Ox 98.9 F 83 18 126/95 H 97 11/24/19 15:11 11/24/19 15:11 11/24/19 15:11 11/24/19 15:11 11/24/19 15:11 - Notes Notes: Vital signs reviewed, please refer to chart. Head is normocephalic, atraumatic. Pupils equal round, reactive to light. Neck is supple without meningismus. Heart is regular rate and rhythm. Lungs are clear to auscultation bilaterally. Chest wall reveals no abnormality, no chest wall tenderness to palpation. Full range of motion of the shoulders elicits no significant pain. Abdomen is soft, nontender, normoactive bowel sounds throughout. Extremities without cyanosis, clubbing. Posterior calves are nontender. Peripheral pulses are equal. Skin is warm and dry. Patient is awake, alert, neurological exam is nonfocal. Course - Re-evaluation Re-evalutation: 11/24/19 21:40 Patient presents to the emergency department for evaluation. She complains of chest pain. It is atypical in nature. She has had this pain multiple times over last 6 months. She is been evaluated here multiple times over the last 6 months. She is had CT angiogram. She is had event monitors and echocardiograms for cardiology in the past. No significant abnormality has been noted. Her pain was only intermittent here. She has had 2- troponins. Her EKG shows no significant changes. Patient has requested a urinalysis. I explained to the patient that in light of the fact that she has no symptoms it would be unlikely for her to have a UTI, she would still prefer to wait for this evaluation. Pending a normal urinalysis, patient will be discharged. She is to follow-up with primary care and cardiology, return to the ED with worsening. - Vital Signs Vital signs: Temp Pulse Resp BP Pulse Ox 98.5 F 72 18 139/90 H 97 11/24/19 19:18 11/24/19 19:18 11/24/19 22:44 11/24/19 22:44 11/24/19 22:44 - Laboratory Result Diagrams: 11/24/19 15:38 11/24/19 15:38 Laboratory results interpreted by me: 11/24/19 11/24/19 11/24/19 15:38 15:38 19:31 RDW 15.4 H Chloride 97 L Total Protein 8.7 H Urine Ketones 20 H - Diagnostic Test Radiology reviewed: Reports reviewed Radiology results interpreted by me: 11/24/19 21:41 Chest X-Ray 11/24/19 15:22 IMPRESSION: NO ACUTE RADIOGRAPHIC FINDING IN THE CHEST. - EKG Interpretation by Me Additional EKG results interpreted by me: 11/24/19 21:41 Sinus mechanism with a rate of 81 bpm. Normal axis and intervals. Nonspecific T wave changes, but no acute ST elevations concerning for infarction. No significant change compared to prior study. Discharge - Discharge Clinical Impression: Chest pain Qualifiers: Chest pain type: unspecified Qualified Code(s): R07.9 - Chest pain, unspecified Condition: Stable Disposition: HOME, SELF-CARE Instructions: Chest Pain of Unclear Cause ([facility]) Additional Instructions: No clear cause was found for your chest pain today. Your urinalysis showed no signs of infection. Please continue to take your home medications as prescribed. Follow-up with your primary care provider this week. If you develop worsening or new concerning symptoms of any sort, return immediately to the ER for further evaluation. Referrals: PILAR NJ FNP-C [Primary Care Provider] - Follow up as needed
[2019-11-24 22:24] LABS: APPEARANCE,URINE SLIGHTLY-CLOUDY; BILIRUBIN,URINE NEGATIVE (NEGATIVE); COLOR,URINE YELLOW; GLUCOSE, URINE NEGATIVE (NEGATIVE); KETONES,URINE 20 mg/dL (NEGATIVE); LEUKOCYTE ESTERASE,URINE NEGATIVE (NEGATIVE); NITRITE,URINE NEGATIVE (NEGATIVE); PROTEIN,URINE NEGATIVE (NEGATIVE); URINE SPECIFIC GRAVITY 1.014; UROBILINOGEN,URINE NEGATIVE mg/dL (<2.0)
[2019-11-24 22:52] VITALS: BP 139/90
--- NOTE | 2019-11-25 00:53 | EKG REPORT ---
SEVERITY:- BORDERLINE ECG - SINUS RHYTHM BORDERLINE T ABNORMALITIES, ANTERIOR LEADS : Confirmed by: Sloan Peguero 25-Nov-2019 00:51:27
== END 2019-11-24 23:06 | disposition home or self-care (01) ==
LOC: ER 14:52
DX: R07.89 Other chest pain (principal); I10 Essential (primary) hypertension; J45.909 Unspecified asthma, uncomplicated; D64.9 Anemia, unspecified; Z87.442 Personal history of urinary calculi; Z79.899 Other long term (current) drug therapy; Z82.49 Family history of ischemic heart disease and other diseases of the circulatory system
CPT/HCPCS: 36415; 71045; 80053; 81001; 82550; 82553; 84484; 85025; 93005; 93010; 99285

== ENCOUNTER 2019-12-08 07:01 | Day surgery (SDC) | payer OTHER ==
[2019-12-08] MEDS ORDERED: PROPOFOL INJ 200 MG/20 ML VIAL IV ONE (07:34)
--- NOTE | 2019-12-08 08:43 | Operative Report ---
Operative Report DATE OF SURGERY: 12/08/19 Operative Report: The risk, benefits and alternatives of the procedure including the risk of bleeding, perforation requiring surgery have been explained to the patient in detail and informed consent has been obtained. Patient is taken back to the endoscopy suite placed in a left, lateral decubital position. Timeout was called. Propofol medication is administered. Rectal examination is done which did not reveal any masses, tears or fissures. An Olympus videoscope was in troduced into the patient's rectum. Scope was then carefully advanced all the way to the cecum. The cecum was identified by the usual anatomical landmarks including the ileocecal valve as well as the appendiceal office. Photodocumentation is obtained. Scope was then sequentially pulled back via the rest segments of the colon including the ascending colon, hepatic flexure, transverse colon, splenic flexure, descending colon finally into the rectosigmoid portions of the colon. Retroflexion maneuver is performed. The risks benefits and alternatives of the procedure explained to the patient in detail and informed consent is obtained.A GIF Olympus video scope was inserted into the patient's mouth and hypopharynx, the esophagus is identified intubated and insufflated, the scope was then advanced through the esophagus stomach and duodenum ,retroflexion maneuver is done, the esophagus stomach and first and second portions of the duodenum examined PREOPERATIVE DIAGNOSIS: Change in bowel habits. Colorectal cancer screening. Gastroesophageal reflux disease, epigastric pain or peptic ulcer disease POSTOPERATIVE DIAGNOSIS: Terminal ileitis status post biopsy rule out Crohn's disease. Internal hemorrhoids. Duodenitis rule out celiac disease. Gastritis rule out H. pylori. Esophageal rings and furrows status post biopsy rule out eosinophilic esophagitis OPERATION: EGD with biopsy, colonoscopy with biopsy SURGEON: MITALI KNPAP ANESTHESIA: LMAC TISSUE REMOVED OR ALTERED: As noted above. COMPLICATIONS: None. ESTIMATED BLOOD LOSS: None. INTRAOPERATIVE FINDINGS: As noted above. PROCEDURE: Patient tolerated the procedure well. No immediate postprocedure complications are noted. Patient is discharged in good condition. Discharge date 12/08/2019. Discharge diet: Regular. Discharge activity: Regular. 2 to 3-week follow-up to discuss findings. Patient is instructed to call the office or proceed to the emergency room should there be any further problems or questions. Wait on the pathology. If biopsies are negative consider 10-year surveillance colonoscopy
[2019-12-08 09:10] VITALS: BP 121/79
== END 2019-12-08 09:25 | disposition home or self-care (01) ==
LOC: END 07:01
PROVIDERS: ATTEND Internal Medicine Gastroenterology
DX: K50.00 Crohn's disease of small intestine without complications (principal); K29.80 Duodenitis without bleeding; K29.70 Gastritis, unspecified, without bleeding; K21.9 Gastro-esophageal reflux disease without esophagitis; K64.8 Other hemorrhoids; D64.9 Anemia, unspecified; I10 Essential (primary) hypertension; R73.03 Prediabetes; Z68.20 Body mass index [BMI] 20.0-20.9, adult; J45.909 Unspecified asthma, uncomplicated; F41.9 Anxiety disorder, unspecified; Z79.899 Other long term (current) drug therapy; Z03.818 Encounter for observation for suspected exposure to other biological agents ruled out
CPT/HCPCS: 43239; 45380; 813; 88305; 88342; J2704

== ENCOUNTER → 2019-12-12 | Outpatient (CLI) | payer OTHER ==
--- NOTE | 2019-12-12 13:58 | RADIOLOGY REPORT (SQ) ---
EXAM DESCRIPTION: HUMERUS BILAT 2+ VIEWS IMAGES COMPLETED DATE/TIME: 12/12/2019 10:25 am REASON FOR STUDY: PAIN IN BILATERAL HUMERUS M79.601 PAIN IN RIGHT ARM COMPARISON: None. NUMBER OF VIEWS: Two views. TECHNIQUE: Two radiographic images were acquired of the right and left humerus to include elbow and shoulder in at least one projection. LIMITATIONS: None. FINDINGS: MINERALIZATION: Normal. BONES: No acute fracture or dislocation. No worrisome bone lesions. No significant osteophytes. SOFT TISSUES: No obvious swelling or foreign body. OTHER: No other significant finding. IMPRESSION: NEGATIVE STUDY OF THE RIGHT AND LEFT HUMERUS. NO EXPLANATION FOR PAIN. TECHNICAL DOCUMENTATION: JOB ID: [id number] 2010 [employer]- All Rights Reserved Reading location - IP/workstation name: [email or web address]
== END ==
LOC: OD 10:11
PROVIDERS: ATTEND Nurse Practitioner Family
DX: M79.601 Pain in right arm (principal); M79.602 Pain in left arm
CPT/HCPCS: 73060

== ENCOUNTER 2019-12-28 12:09 | Emergency (ER) | payer OTHER ==
--- NOTE | 2019-12-28 13:32 | ER Document Report ---
ED Medical Screen (RME) - General Chief Complaint: Chest Pain Stated Complaint: CHEST PAIN,HEADACHE Time Seen by Provider: 12/28/19 13:19 Primary Care Provider: PILAR NJ FNP-C [Primary Care Provider] - Follow up as needed TRAVEL OUTSIDE OF THE [place] IN LAST 30 DAYS: No - HPI Notes: 12/28/19 13:30 49-year-old female with past medical history of H. pylori, hypertension to emergency department with complaints of headache since yesterday and chest pain that began this morning. She states the headache seems to be a little bit more frontal in nature and comes and goes. She states she is feeling pressure behind her nose as well. She states he awoke this morning about 7 AM with anterior midsternal chest pain. She states it radiates down to both arms. She states that her arms feel like [id number] like they are just waking up. She denies any back pain, shortness of breath, nausea vomiting, diaphoresis. Family history of heart attacks in both mom and dad but she is not exactly sure what age. She is nondiabetic and has no hyperlipidemia. She is a non-smoker. Her primary care physician sent her over to the emergency department for further evaluation for her chest pain. She also reports episodes of dizziness. Where she feels like she is going to fall. She states that has been going on for some time. Recently had an EGD and a colonoscopy. Was found to be positive for H. pylori and is currently taking amoxicillin, Flagyl, Prilosec. I performed a brief medical screening exam on the patient determined that the patient needs further evaluation and management by main side provider. I have placed initial orders to help expedite care. - Related Data Allergies/Adverse Reactions: [id number] [From [employer]idasovy Autoinjector] Allergy (Verified 12/28/19 13:18) numbness Past Medical History - Social History Frequency of alcohol use: Occasional Drug Abuse: None - Past Medical History Cardiac Medical History: Reports: Hx Hypertension - BEEN TO ER 5 TIMES DUE TO FLUCUATIONS Denies: Hx Coronary Artery Disease - HEART ABLATION, Hx Heart Attack Pulmonary Medical History: Reports: Hx Asthma, Hx Bronchitis Denies: Hx COPD, Hx Pneumonia Neurological Medical History: Reports: Hx Migraine. Denies: Hx Cerebrovascular Accident, Hx Seizures Renal/ Medical History: Denies: Hx Peritoneal Dialysis GI Medical History: Musculoskeltal Medical History: Denies Hx Arthritis Infectious Medical History: Past Surgical History: Reports: Hx Cardiac Surgery - ablation for svt, Hx Gynecologic Surgery - ablation. Denies: Hx Pacemaker - Immunizations Hx Diphtheria, Pertussis, Tetanus Vaccination: No Physical Exam - Vital signs Vitals: Temp Pulse Resp BP Pulse Ox 98.2 F 67 16 129/85 H 100 12/28/19 12:53 12/28/19 12:53 12/28/19 12:53 12/28/19 12:53 12/28/19 12:53 Course - Vital Signs Vital signs: Temp Pulse Resp BP Pulse Ox 98.2 F 67 16 129/85 H 100 12/28/19 12:53 12/28/19 12:53 12/28/19 12:53 12/28/19 12:53 12/28/19 12:53 Doctor's Discharge - Discharge Referrals: PILAR NJ FNP-C [Primary Care Provider] - Follow up as needed
[2019-12-28 14:20] LABS: ABSOLUTE EOSINOPHILS # (AUTO) 0.1 10^3/uL (0.0-0.6); ABSOLUTE LYMPHOCYTES (AUTO) 1.4 10^3/uL (0.5-4.7); ABSOLUTE MONOCYTES (AUTO) 0.4 10^3/uL (0.1-1.4); ABSOLUTE NEUT (AUTO) 2.3 10^3/uL (1.7-8.2); BASOPHILS % (AUTO) 0.8 % (0-2); EOSINOPHILS % (AUTO) 2.6 % (0-6); HEMATOCRIT 39.8 % (36.0-47.0); HEMOGLOBIN 13.3 g/dL (12.0-15.5); LYMPHOCYTES % (AUTO) 33.7 % (13-45); MEAN CORPUSCULAR HEMOGLOBIN 28.9 pg (27.0-33.4); MEAN CORPUSCULAR HGB CONC 33.3 g/dL (32.0-36.0); MEAN CORPUSCULAR VOLUME 87 fl (80-97); MONOCYTES % (AUTO) 8.8 % (3-13); PLATELET COUNT 257 10^3/uL (150-450); RED BLOOD COUNT 4.59 10^6/uL (3.72-5.28); RED CELL DISTRIBUTION WIDTH 15.3 % (11.5-14.0); SEGMENTED NEUTROPHILS % (AUTO) 54.1 % (42-78); TOTAL CELLS COUNTED % (AUTO) 100 %; WHITE BLOOD COUNT 4.2 10^3/uL (4.0-10.5)
[2019-12-28 14:28] LABS: INTERNATIONAL RATION (INR) 0.98; PARTIAL THROMBOPLASTIN TIME 28.9 SEC (23.5-35.8); PROTHROMBIN TIME 13.2 SEC (11.4-15.4)
[2019-12-28 14:44] LABS: ALBUMIN 4.3 g/dL (3.5-5.0); ALKALINE PHOSPHATASE 63 U/L (38-126); ANION GAP 8 (5-19); ASPARTATE AMINO TRANSFERASE 23 U/L (14-36); BILIRUBIN,DIRECT 0.2 mg/dL (0.0-0.4); BILIRUBIN,TOTAL 0.7 mg/dL (0.2-1.3); BLOOD UREA NITROGEN 7 mg/dL (7-20); CALCIUM 9.8 mg/dL (8.4-10.2); CARBON DIOXIDE 27 mmol/L (22-30); CHLORIDE 103 mmol/L (98-107); GLUCOSE 96 mg/dL (75-110); POTASSIUM 4.5 mmol/L (3.6-5.0); TOTAL PROTEIN 7.8 g/dL (6.3-8.2)
--- NOTE | 2019-12-28 15:01 | RADIOLOGY REPORT (SQ) ---
EXAM DESCRIPTION: CHEST 2 VIEWS IMAGES COMPLETED DATE/TIME: 12/28/2019 2:33 pm REASON FOR STUDY: chestpain COMPARISON: 11/24/2019 EXAM PARAMETERS: NUMBER OF VIEWS: two views TECHNIQUE: Digital Frontal and Lateral radiographic views of the chest acquired. RADIATION DOSE: NA LIMITATIONS: none FINDINGS: LUNGS AND PLEURA: No opacities, masses or pneumothorax. No pleural effusion. MEDIASTINUM AND HILAR STRUCTURES: No masses or contour abnormalities. HEART AND VASCULAR STRUCTURES: Heart normal size. No evidence for failure. BONES: No acute findings. HARDWARE: None in the chest. OTHER: No other significant finding. IMPRESSION: NO ACUTE RADIOGRAPHIC FINDING IN THE CHEST. TECHNICAL DOCUMENTATION: JOB ID: [id number] 2010 [employer]- All Rights Reserved Reading location - IP/workstation name: [email or web address]
--- NOTE | 2019-12-28 16:47 | ER Document Report ---
ED Cardiac - General Chief Complaint: Chest Pain Stated Complaint: CHEST PAIN,HEADACHE Time Seen by Provider: 12/28/19 13:19 Primary Care Provider: PILAR NJ FNP-C [Primary Care Provider] - Follow up as needed Notes: Patient is a 49-year-old female who presents emergency department with a chief complaint of chest pain. Patient reports around 8 AM this morning she developed chest pain located in the center of her chest. Patient reports that sometimes it does radiate into bilateral upper extremities. Patient reports this does not go all the way down to her hands but stops at the elbows. Patient reports she does have arm pain when it is not associated with the chest pain. Patient reports she started having intermittent chest pain beginning around July of this year. She states she has been here multiple times for this complaint as well as seen a office coordinator. She states that she wore a heart monitor which was normal. Patient reports over the past week she has been started on omeprazole, amoxic illin and Flagyl due to a "bacteria" in her stomach. This was prescribed by hotel manager. TRAVEL OUTSIDE OF THE [place] IN LAST 30 DAYS: No - Related Data Allergies/Adverse Reactions: [id number] [From [employer]] Allergy (Verified 12/28/19 13:18) numbness Past Medical History - General Information source: Patient - Social History Smoking Status: Never Smoker Frequency of alcohol use: Occasional Drug Abuse: None Lives with: Family Family History: CAD - Past Medical History Cardiac Medical History: Reports: Hx Hypertension - BEEN TO ER 5 TIMES DUE TO FLUCUATIONS Denies: Hx Coronary Artery Disease - HEART ABLATION, Hx Heart Attack Pulmonary Medical History: Reports: Hx Asthma, Hx Bronchitis Denies: Hx COPD, Hx Pneumonia EENT Medical History: Reports: None Neurological Medical History: Reports: Hx Migraine. Denies: Hx Cerebrovascular Accident, Hx Seizures Endocrine Medical History: Reports: None Renal/ Medical History: Reports: None. Denies: Hx Peritoneal Dialysis Malignancy Medical History: Reports: None GI Medical History: Reports: Hx Gastritis Musculoskeletal Medical History: Reports None, Denies Hx Arthritis Skin Medical History: Reports None Psychiatric Medical History: Reports: None Traumatic Medical History: Reports: None Infectious Medical History: Reports: None Past Surgical History: Reports: Hx Cardiac Surgery - ablation for svt, Hx Gynecologic Surgery - ablation. Denies: Hx Pacemaker - Immunizations Hx Diphtheria, Pertussis, Tetanus Vaccination: No Review of Systems - Review of Systems Constitutional: No symptoms reported EENT: No symptoms reported Cardiovascular: See HPI Gastrointestinal: See HPI Genitourinary: No symptoms reported Female Genitourinary: No symptoms reported Musculoskeletal: No symptoms reported Skin: No symptoms reported Hematologic/Lymphatic: No symptoms reported Neurological/Psychological: No symptoms reported Physical Exam - Vital signs Vitals: Temp Pulse Resp BP Pulse Ox 98.2 F 67 16 129/85 H 100 12/28/19 12:53 12/28/19 12:53 12/28/19 12:53 12/28/19 12:53 12/28/19 12:53 Interpretation: Normal - Notes Notes: GENERAL: Well-appearing, well-nourished and in no acute distress. HEAD: Atraumatic, normocephalic. EYES: Pupils equal round and reactive to light, extraocular movements intact, sclera anicteric, conjunctiva are normal. ENT: TMs normal, nares patent, oropharynx clear without exudates. Moist mucous membranes. NECK: Normal range of motion, supple without lymphadenopathy or JVD. LUNGS: Breath sounds clear to auscultation bilaterally and equal. No wheezes rales or rhonchi. HEART: Regular rate and rhythm without murmurs, rubs or gallops. No chest wall tenderness to palpation. ABDOMEN: Soft, nontender, normoactive bowel sounds. No guarding, no rebound. No masses appreciated. BACK: No cervical, thoracic, lumbar midline tenderness. No saddle anesthesia, normal distal neurovascular exam. GENITOURINARY: Deferred. EXTREMITIES: Normal range of motion, no pitting or edema. No clubbing or cyanosis. NEUROLOGICAL: Cranial nerves II through XII grossly intact. Normal speech, normal gait. PSYCH: Normal mood, normal affect. SKIN: Warm, Dry, normal turgor, no rashes or lesions noted. Course - Re-evaluation Re-evalutation: 12/28/19 16:48 Patient did have a recent upper and lower endoscopy, it was noted that the patient had ileitis as well as gastritis. This would explain the recent medications that she was placed on at her follow-up visit. Will repeat troponin. Patient currently denies chest pain. Heart score; 2, low risk. 12/28/19 18:09 Patient is in no acute distress at this time. Patient currently denies chest pain. Patient's heart score is a 2. Patient to continue taking her meds for gastritis. Patient has followed up with the hotel manager as well as the office coordinator over the past 6 months per the patient report. I did inform the patient to follow-up with her primary care physician, call them tomorrow so she can be reevaluated. Patient was given strict return precautions. - Vital Signs Vital signs: Temp Pulse Resp BP Pulse Ox 98.2 F 67 18 125/89 H 100 12/28/19 12:53 12/28/19 12:53 12/28/19 18:01 12/28/19 18:01 12/28/19 18:01 - Laboratory Result Diagrams: 12/28/19 13:57 12/28/19 13:57 Laboratory results interpreted by me: 12/28/19 13:57 RDW 15.3 H - Diagnostic Test Radiology reviewed: Reports reviewed Radiology results interpreted by me: 12/28/19 17:04 Chest X-Ray 12/28/19 13:29 IMPRESSION: NO ACUTE RADIOGRAPHIC FINDING IN THE CHEST. - EKG Interpretation by Me Additional EKG results interpreted by me: 12/28/19 17:04 EKG shows sinus rhythm with a heart rate of 70. Patient's CO interval 152, QT 400, QTc 432. Patient has a normal axis deviation without significant ST depression or elevation in multiple leads. No significant change from previous EKG. Discharge - Discharge Clinical Impression: Chest pain Qualifiers: Chest pain type: unspecified Qualified Code(s): R07.9 - Chest pain, unspecified Condition: Stable Disposition: HOME, SELF-CARE Instructions: Chest Pain of Unclear Cause ([facility]) Additional Instructions: Today are seen in the emergency department for chest pain. Your lab work, EKG and chest x-ray were negative. Your troponin, which is your cardiac enzyme was negative x2. Please continue taking your antibiotics as well as omeprazole which is for your gastritis. Please follow-up with your hotel manager as well as your primary care physician as you may need further work-up and another visit to the office coordinator. Please return to the emergency department if you develop any new or worsening symptoms. CHEST PAIN OF UNCLEAR CAUSE: The exact cause of your chest pain isn't clear. Fortunately, there is no evidence of a dangerous medical condition. Further testing may be required to find the source of the pain. Most often, we find that this pain is coming from the chest wall -- the muscles or rib joints in the chest. But chest pain can come from the lung and lung lining, the esophagus, the heart valves or heart lining, and even the stomach or gallbladder. Rest. Eat lightly until the pain is gone. We may prescribe medicine for pain and inflammation. You should call the physician immediately if the pain radiates to the shoulder, jaw or arms; if you start to run a fever or develop a cough; or if you develop shortness of breath, or other new or alarming symptoms. NORMAL EXAM AND WORKUP: At this time, your examination and workup show no significant abnormality. No significant abnormal physical findings were noted. All laboratory, EKG, and imaging (x-ray, CT scans, ultrasound) studies that were ordered show no significant abnormality. Although your examination and all studies that were ordered showed no significant abnormal finding, there are no examinations and no studies that are 100% accurate. There is always the possibility that some abnormality could exist and not be detected with physical examination or within the limits and capabilities of laboratory and other studies. You should return or follow up as you were instructed on your visit today for further evaluation if your symptoms do not resolve. ACID REFLUX DISEASE (GERD): Gastro-Esophageal Reflux Disease (GERD) is caused by stomach acid refluxing back up into the esophagus. The valve at the end of the esophagus may be weak. This is common in persons with a hiatal hernia. GERD symptoms can include indigestion, chest pain, heartburn, or food "sticking." Certain foods, alcohol, and aspirin can make GERD worse. Treatment depends on the severity. Usually, antacids or acid-suppressing medicines are used. When the esophagus is acutely inflamed, the physician will often prescribe membrane-protective drugs such as Carafate. Some patients benefit from medication such as Reglan that tightens the valve at the top of the stomach. Avoid those foods that bring on your symptoms. For many people, these foods are coffee, chocolate, onions, garlic, and carbonated drinks. Don't use alcohol, aspirin, caffeine, or tobacco. Don't eat late at night -- within 4 hours of bed time. Don't over-eat. If necessary, elevate the head of your bed about 4 inches so that stomach acid will not roll up into your esophagus. Call the doctor if you develop severe chest pain, inability to swallow fluids, fever, or worsening symptoms. ANTACID THERAPY: You have been instructed to start antacid therapy. Antacids directly neutralize stomach acid. This is useful for acid irritation of the esophagus, gastritis, and ulcers. You should take two tablespoons of antacid one hour after each meal and three hours after each meal. If you are not eating, take the antacid every two hours. If you are using a concentrate (such as Maalox TC), use only one tablespoon. Many antacids affect the bowels. The most common problem is diarrhea. In this case, a pure aluminum hydroxide antacid (such as AlternaGel) can be substituted for some or all doses. If the problem is constipation, add a teaspoon of Milk of Magnesia to each dose. Call the doctor if you experience continued diarrhea or constipation, or if you develop lightheadedness, bloody stool or vomitus, severe abdominal pain, or black stool. FOLLOW-UP CARE: If you have been referred to a physician for follow-up care, call the physicians office for an appointment as you were instructed or within the next two days. If you experience worsening or a significant change in your symptoms, notify the physician immediately or return to the Emergency Department at any time for re-evaluation. Referrals: PILAR NJ FNP-C [Primary Care Provider] - Follow up as needed
[2019-12-28 18:25] VITALS: BP 125/89
--- NOTE | 2019-12-28 18:53 | EKG REPORT ---
SEVERITY:- NORMAL ECG - SINUS RHYTHM : Confirmed by: Segun Juares MD 28-Dec-2019 18:52:11
== END 2019-12-28 18:40 | disposition home or self-care (01) ==
LOC: ER 12:09
DX: R07.9 Chest pain, unspecified (principal); M79.601 Pain in right arm; M79.602 Pain in left arm; K52.9 Noninfective gastroenteritis and colitis, unspecified; I10 Essential (primary) hypertension; J45.909 Unspecified asthma, uncomplicated; Z88.6 Allergy status to analgesic agent; Z82.49 Family history of ischemic heart disease and other diseases of the circulatory system
CPT/HCPCS: 36415; 71046; 80053; 83735; 84484; 85025; 85610; 85730; 93005; 93010; 99285

== ENCOUNTER → 2020-04-04 | Outpatient (CLI) | payer OTHER ==
--- NOTE | 2020-04-08 13:56 | WOMENS IMAGING REPORT ---
EXAM DESCRIPTION: BILAT SCREENING MAMMO W/CAD IMAGES COMPLETED DATE/TIME: 04/04/2020 1:54 pm REASON FOR STUDY: Z12.31 ENCOUNTER FOR SCREENING MAMMOGRAM FOR MALIGNANT NEOPLASM OF BREAST Z12.31 ENCNTR SCREEN MAMMOGRAM FOR MALIGNANT NEOPLASM OF MARK COMPARISON: 09/05/2017, EXAM PARAMETERS: Standard craniocaudal and mediolateral oblique views of each breast recorded using digital acquisition. Read with the assistance of CAD. .[facility] - [employer] Version 9.2 LIMITATIONS: None. FINDINGS: No suspicious masses, suspicious calcifications or architectural distortion. No areas of c oncern. IMPRESSION: NEGATIVE MAMMOGRAM. BIRADS 1 BREAST DENSITY: c. The breasts are heterogeneously dense, which may obscure small masses. BIRAD: ASSESSMENT: 1 NEGATIVE RECOMMENDATION: ROUTINE SCREENING COMMENT: The patient has been notified of the results by letter per MQSA requirements. Additional no tification policies are in place for contacting patient with suspicious or incomplete findings. Quality ID #[id number]: The [employer] recommends an annual screening mammogram for women aged 40 years or over. This facility utilizes a reminder system to ensure that all patients receive reminder letters, and/or direct phone calls for appointments. This includes reminders for routine scr eening mammograms, diagnostic mammograms, or other Breast Imaging Interventions when appropriate. Th is patient will be placed in the appropriate reminder system. TECHNICAL DOCUMENTATION: FINDING NUMBER: (1) ASSESSMENT: (1) JOB ID: [id number] 2010 [employer]- All Rights Reserved Reading location - IP/workstation name: [email or web address]
== END ==
LOC: WI 13:30
PROVIDERS: ATTEND Nurse Practitioner Family
DX: Z12.31 Encounter for screening mammogram for malignant neoplasm of breast (principal)
CPT/HCPCS: 77067